=== PATIENT | male | born 1950 | race Hispanic/Latino ===

== ENCOUNTER 2017-10-21 09:15 | Emergency (ER) | payer OTHER ==
[2017-10-21] MEDS ORDERED: TETANUS/DIPHTHERIA TOXOID [ADULT] 0.5 ML VIAL IM ONE (09:32)
[2017-10-21] MEDS ORDERED: ONDANSETRON HCL MDV 20ML 2 MG/ML VIAL ONE (09:47)
[2017-10-21] MEDS ORDERED: CEFAZOLIN SODIUM 1 GM VIAL ONE (09:47)
[2017-10-21] MEDS ORDERED: MORPHINE SULFATE 4 MG/1ML SYG ONE (09:48)
== END 2017-10-21 10:58 | disposition home or self-care (01) ==
LOC: EDH 09:15
DX: S62.613B Displaced fracture of proximal phalanx of left middle finger, initial encounter for open fracture (principal); W55.32XA Struck by other hoof stock, initial encounter; Y93.89 Activity, other specified; Y92.098 Other place in other non-institutional residence as the place of occurrence of the external cause; Y99.8 Other external cause status
CPT/HCPCS: 29125; 73130; 90471; 90714; 96365; 96375; 99284; J0690; J2270